=== PATIENT | male | born 1955 | race Caucasian/White ===

== ENCOUNTER 2019-01-05 11:42 | Inpatient (IN) | payer OTHER ==
[~2019-01-05] VITALS: Ht 165.1 cm; Wt 55.8 kg
[2019-01-05] MEDS ORDERED: ASPIR 8181 MG PO (14:27)
[2019-01-05] MEDS ORDERED: HYDRALAZINE HCL25 MG PO (14:27)
[2019-01-05] MEDS ORDERED: KEPPRA500 MG PO (14:28)
[2019-01-05] MEDS ORDERED: NORVASC10 MG PO (14:28)
[2019-01-05] MEDS ORDERED: TOPROL XL25 MG PO (14:28)
== END 2019-01-09 14:34 | disposition home or self-care (01) | DRG 812 ==
LOC: ER 11:42 → MEDI 20:56 → SEC-K 20:56 → MEDJ 01-06 10:30 → SEC-K 01-06 11:09 → MEDI 01-06 15:27 → MEDJ 01-06 15:27 → MEDI 01-09 14:34
PROVIDERS: ADMIT Internal Medicine
PROC: BT43ZZZ Ultrasonography of Bilateral Kidneys (ICD-10-PCS; 2019-01-05)
PROC: 0DJ08ZZ Inspection of Upper Intestinal Tract, Via Natural or Artificial Opening Endoscopic (ICD-10-PCS; principal; 2019-01-06)
PROC: 0DJD8ZZ Inspection of Lower Intestinal Tract, Via Natural or Artificial Opening Endoscopic (ICD-10-PCS; 2019-01-07)
PROC: 0DJD8ZZ Inspection of Lower Intestinal Tract, Via Natural or Artificial Opening Endoscopic (ICD-10-PCS; 2019-01-08)
DX: D64.89 Other specified anemias (principal); G81.94 Hemiplegia, unspecified affecting left nondominant side; Z86.73 Personal history of transient ischemic attack (TIA), and cerebral infarction without residual deficits; I10 Essential (primary) hypertension; Z74.01 Bed confinement status

== ENCOUNTER 2019-07-22 11:43 | Outpatient (CLI) | payer OTHER ==
[~2019-07-22 11:43] MED LIST: ASPIR 8181 MG PO; HYDRALAZINE HCL25 MG PO; KEPPRA500 MG PO; NORVASC10 MG PO; TOPROL XL25 MG PO
== END 2019-07-22 11:48 | disposition home or self-care (01) ==
LOC: RAD 11:43
DX: M60.88 Other myositis, other site (principal); I67.89 Other cerebrovascular disease